=== PATIENT | male | born 1950 | race Caucasian/White ===

== ENCOUNTER 2018-07-17 09:43 | Emergency (ER) | payer OTHER ==
[~2018-07-17] VITALS: Ht 190.5 cm; Wt 86.2 kg
[2018-07-17 11:57] LABS: Basophils # (auto) 0.1 uL; Eosinophils # (auto) 0 uL; Lymphocytes # (auto) 0.9 uL; Monocytes # (auto) 0.6 uL; Red Cell Distribution Width 14.4 % (11.8-14.3)
[2018-07-17 11:58] LABS: Basophils % (auto) 1.2 % (0.0-2.0); Eosinophils % (auto) 0.5 % (0.0-7.0); Hematocrit 46.3 % (41.0-53.0); Hemoglobin 15.9 g/dL (13.5-17.5); Lymphocytes % (auto) 14.6 % (10.0-50.0); Mean Corpuscular Hemoglobin 34.6 pg (28.0-32.0); Mean Corpuscular Hgb Conc. 34.3 g/dL (32.0-36.0); Monocytes % (auto) 9.5 % (0.0-12.0); Neutrophils # (auto) 4.7 uL; Neutrophils % (auto) 74.2 % (37.0-80.0); Platelet Count (auto) 155 10^3/uL (140-450); Red Blood Cells 4.58 10^6/uL (4.5-5.90); White Blood Cell 6.3 10^3/uL (4.4-10.8)
[2018-07-17 12:14] LABS: INR 1.51 (0.9-1.15); Partial Thromboplastin Time 31.3 sec (23.78-33.04); Prothrombin Time 15.8 sec (9.27-12.13)
[2018-07-17 12:19] LABS: Albumin 4.4 g/dL (3.4-5.0); Anion Gap 5 (5-15); Blood Urea Nitrogen 9 mg/dL (7-18); Carbon Dioxide 27 mmol/L (21-32); Chloride 106 mmol/L (98-107); Glucose 106 mg/dL (74-106); Potassium 3.8 mmol/L (3.5-5.1); Sodium 138 mmol/L (136-145)
[2018-07-17 12:24] LABS: Alanine Aminotransferase 55 U/L (16-61); Alkaline Phosphatase 88 U/L (45-117); Aspartate Aminotransferase 58 U/L (15-37); BUN/Creatinine Ratio 9.6; Bilirubin, Total 4.5 mg/dL (0.2-1.0); GFR African American 103 mL/min; GFR Non-African American 85 mL/min; Total Protein 7.4 g/dL (6.4-8.2)
[2018-07-17 15:57] LABS: Urine Bacteria NONE SEEN /hpf (None Seen); Urine Blood Negative /uL (Negative); Urine Specific Gravity 1.008 (1.001-1.035); Urine WBC <1 /hpf (0 - 3)
[2018-07-17 17:30] VITALS: BP 122/70
== END 2018-07-17 18:17 | disposition home or self-care (01) ==
LOC: ER 09:52
DX: I50.9 Heart failure, unspecified (principal); F41.9 Anxiety disorder, unspecified; R42 Dizziness and giddiness; R55 Syncope and collapse; I48.91 Unspecified atrial fibrillation; Z87.891 Personal history of nicotine dependence
CPT/HCPCS: 36415; 71046; 80053; 81001; 83880; 84484; 85025; 85610; 85730; 93005

== ENCOUNTER 2020-07-10 22:10 | Emergency (ER) | payer OTHER ==
[~2020-07-10] VITALS: Ht 182.9 cm; Wt 90.7 kg
[2020-07-11] MEDS ORDERED: LIDOCAINE W/ EPINEPHRINE 2% INJ 20ML VIAL ID ONE (01:00)
[2020-07-11 03:06] VITALS: BP 140/68
[2020-12-01] MEDS ORDERED: METO-6 PO (12:06)
[2020-12-01] MEDS ORDERED: AMIO200T33 PO (12:06)
[2020-12-01] MEDS ORDERED: WARF2.5T39 PO (12:06)
[2020-12-01] MEDS ORDERED: TRAZ-184 PO (12:06)
[2020-12-01] MEDS ORDERED: QUET25TA37 PO (12:06)
[2020-12-01] MEDS ORDERED: BUSP10TA90 PO (12:06)
[2020-12-01] MEDS ORDERED: ATO40T PO (12:06)
[2020-12-01] MEDS ORDERED: SERT50TA19 PO (12:06)
== END 2020-07-11 03:07 | disposition home or self-care (01) ==
LOC: EDBD 22:10 → ER 22:13
DX: S01.01XA Laceration without foreign body of scalp, initial encounter (principal); H91.13 Presbycusis, bilateral; I10 Essential (primary) hypertension; Z87.891 Personal history of nicotine dependence; W18.09XA Striking against other object with subsequent fall, initial encounter; Y93.89 Activity, other specified; Y92.89 Other specified places as the place of occurrence of the external cause; Y99.8 Other external cause status
CPT/HCPCS: 12004; 70450; 72125; 93005

== ENCOUNTER 2020-12-06 06:58 | Day surgery (SDC) | payer OTHER ==
[~2020-12-06] VITALS: Ht 190.5 cm; Wt 94.3 kg
[~2020-12-06 06:58] MED LIST: AMIO200T33 PO; ATO40T PO; BUSP10TA90 PO; METO-6 PO; QUET25TA37 PO; SERT50TA19 PO; TRAZ-184 PO; WARF2.5T39 PO
[2020-12-06] MEDS ORDERED: diphenhdrAMINE HCL 50 MG/1 ML VL IV ONE (08:45)
[2020-12-06] MEDS ORDERED: MIDAZOLAM HCL 2MG/2ML 2ml VIAL (1mg/ml) IV ONE (08:45)
[2020-12-06] MEDS ORDERED: LIDOCAINE VISCOUS 2% 15ML UD MT ONE (08:45)
[2020-12-06] MEDS ORDERED: fentaNYL CITRATE 100 MCG/2 ML VL IV ONE (08:45)
== END 2020-12-06 11:55 | disposition home or self-care (01) ==
LOC: CATH 06:58
PROVIDERS: ATTEND Internal Medicine
DX: I48.91 Unspecified atrial fibrillation (principal); I10 Essential (primary) hypertension; E78.5 Hyperlipidemia, unspecified; I73.9 Peripheral vascular disease, unspecified; J98.4 Other disorders of lung; Z87.891 Personal history of nicotine dependence; Z20.822 Contact with and (suspected) exposure to COVID-19; Z79.899 Other long term (current) drug therapy
CPT/HCPCS: 93005; 93312; J1200; J2250; J3010; J7030; U0003; 99152